=== PATIENT | female | born 1935 | race Caucasian/White ===

== ENCOUNTER 2019-10-01 14:00 | Emergency (ER) | payer MEDICARE, OTHER ==
--- NOTE | 2019-10-01 14:34 | EDM.PDOC ---
ED HPI GENERAL MEDICAL PROBLEM - General Chief Complaint: Genitourinary Problem Stated Complaint: POSSIBLE BLADDER INFECTION Time Seen by Provider: 10/01/19 14:34 Source of Information: Reports: Patient History Limitations: Reports: No Limitations - History of Present Illness INITIAL COMMENTS - FREE TEXT/NARRATIVE: Roughly 1 week of urine discomfort. Has increased intake with minimal improvement if any. States she has had blood in her urine but none visible on sample today. Has been having 2 bowel movements per day but states that are formed as she is taking something for them. Denies fever or chills. Denies change in her chronic pedal edema. Denies shortness of breath or chest discomfort. Denies any other aches or pains of acute nature. Onset Date: 09/25/19 Duration: Day(s):, Constant Location: Reports: Back, Pelvis Quality: Reports: Burning, Dull Severity: Moderate Improves with: Reports: None Worsens with: Reports: None Context: Reports: Activity Associated Symptoms: Reports: No Other Symptoms - Related Data Allergies Allergy/AdvReac Type Severity Reaction Status Date / Time No Known Allergies Allergy Verified 10/01/19 14:26 Home Meds: Home Meds Aspirin [Aspirin EC] 325 mg PO DAILY 10/01/19 [History] Atenolol [Tenormin] 100 mg PO DAILY 10/01/19 [History] Cholecalciferol (Vitamin D3) [Vitamin D3] 1,000 unit PO DAILY 10/01/19 [History] Fluconazole 150 mg PO ONETIME #2 tablet 10/01/19 [Rx] Furosemide 10 mg PO 1200 10/01/19 [History] Furosemide 20 mg PO 0800 10/01/19 [History] Iron Polysaccharide Complex [Poly-Iron] 150 mg PO WITHBREAKFAST 10/01/19 [ History] Lisinopril [Zestril] 40 mg PO DAILY 10/01/19 [History] Nitrofurantoin Macrocrystal [Nitrofurantoin] 100 mg PO BID 6 Days #12 capsule [Rx] Oxybutynin Chloride [Oxybutynin Chloride ER] 15 mg PO DAILY 10/01/19 [History] amLODIPine Besylate [Amlodipine Besylate] 5 mg PO DAILY 10/01/19 [History] glipiZIDE [Glipizide ER] 10 mg PO DAILY 04/19/20 [History] hydrALAZINE [Apresoline] 10 mg PO 1200,1800 10/01/19 [History] hydrALAZINE [Apresoline] 20 mg PO 0800 10/01/19 [History] metFORMIN HCl [Metformin HCl] 1,000 mg PO BID 10/01/19 [History] Past Medical History HEENT History: Reports: Hard of Hearing, Impaired Vision Cardiovascular History: Reports: Heart Failure, Hypertension Respiratory History: Reports: None Gastrointestinal History: Reports: None Genitourinary History: Reports: UTI, Recurrent Musculoskeletal History: Reports: None Neurological History: Reports: None Endocrine/Metabolic History: Reports: Diabetes, Type II, Hypothyroidism Social & Family History - Family History Family Medical History: Noncontributory - Tobacco Use Smoking Status *Q: Never Smoker ED ROS GENERAL - Review of Systems Review Of Systems: Comprehensive ROS is negative, except as noted in HPI. ED EXAM, GENERAL - Physical Exam Exam: See Below General Appearance: Alert, WD/WN, No Apparent Distress Ears: Normal External Exam, Normal Canal Nose: Normal Inspection, Normal Mucosa, No Blood Throat/Mouth: Normal Inspection, Normal Lips, Normal Teeth, Normal Gums, Normal Oropharynx, Normal Voice, No Airway Compromise Head: Atraumatic, Normocephalic Neck: Normal Inspection, Supple, Non-Tender, Full Range of Motion Respiratory/Chest: No Respiratory Distress, Lungs Clear, Normal Breath Sounds, No Accessory Muscle Use, Chest Non-Tender, Decreased Breath Sounds (Basis) Cardiovascular: Normal Peripheral Pulses, Regular Rate, Rhythm, Systolic Murmur (Grade 1/6). No: No Edema GI/Abdominal: Normal Bowel Sounds, Soft, Non-Tender (Female) Exam: Deferred Rectal (Female) Exam: Deferred Back Exam: Normal Inspection, Full Range of Motion, Vertebral Tenderness (Mild tenderness which she attributes has on occasion. No flank pain to percussion.) Extremities: Non-Tender, Pedal Edema (She states this is her normal self with +2 +3 edema bilateral. Skin is warm and dry) Neurological: Alert, Oriented, CN II-XII Intact, Normal Cognition, Normal Gait, Normal Reflexes, No Motor/Sensory Deficits Psychiatric: Normal Affect, Normal Mood Skin Exam: Warm, Dry, Intact, Normal Color, No Rash Course - Orders/Labs/Meds Orders: Active Orders 24 hr Category Date Time Status CULTURE URINE [RM] Stat Lab 10/01/19 14:24 Received Nitrofurantoin [place]/Macrocryst [Macrobid] Med 10/01/19 15:45 Active 200 mg PO BID Medication Orders Nitrofurantoin Macrocrystals (Macrobid) 200 mg PO BID [facility] Labs: Laboratory Tests 10/01/19 10/01/19 10/01/19 Range/Units 14:24 14:43 14:43 WBC 14.09 H (5.00-10.00) 10^3/uL RBC 4.50 (3.80-5.50) 10^6/uL Hgb 12.5 (12.0-16.0) g/dL Hct 37.7 (37.0-47.0) % MCV 83.8 (82.0-92.0) fL MCH 27.8 (27.0-31.0) pg MCHC 33.2 (32.0-36.0) g/dL RDW 14.1 (11.5-14.5) % Plt Count 464 H (150-400) 10^3/uL MPV 9.8 (7.4-10.4) fL Add Manual Diff Yes Neutrophils % (Manual) 82 H (50-70) % Band Neutrophils % 3 L (4-12) % Lymphocytes % (Manual) 9 L (20-40) % Monocytes % (Manual) 5 (2-8) % Eosinophils % (Manual) 1 (1-3) % Absolute Neutrophils 11.55 Band Neutrophils # 0.42 Lymphocytes # (Manual) 1.27 Monocytes # (Manual) 0.70 Eosinophils # (Manual) 0.14 Sodium 140 (136-145) mmol/L Potassium 3.1 L (3.3-5.3) mmol/L Chloride 102 (98-115) mmol/L Carbon Dioxide 23.5 (21.0-32.0) mmol/L Anion Gap 17.6 H (5-15) mmol/L BUN 18 (6-25) mg/dL Creatinine 1.01 (0.51-1.17) mg/dL Est Cr Clr Drug Dosing TNP Estimated GFR (MDRD) 52 mL/min Glucose 372 H (75 - 99) mg/dL Calcium 9.4 (8.7-10.3) mg/dL Total Bilirubin 0.3 (0.2-1.0) mg/dL AST 31 (15-37) U/L ALT 69 (12-78) U/L Alkaline Phosphatase 134 H (46-116) IU/L Total Protein 6.6 (6.4-8.2) g/dL Albumin 2.72 L (3.00-4.80) g/dL Specimen Type . Urine Color Light yellow (YELLOW) Urine Appearance Slightly cloudy H (CLEAR) Urine pH 5.5 (5.0-9.0) Ur Specific [place] 1.010 (1.005-1.030) Urine Protein Negative (NEGATIVE) mg/dL Urine Glucose (UA) 500 H (NEGATIVE) mg/dL Urine Ketones Negative (NEGATIVE) mg/dL Urine Occult Blood Trace-lysed H (NEGATIVE) Urine Nitrite Positive H (NEGATIVE) Urine Bilirubin Negative (NEGATIVE) Urine Urobilinogen 0.2 (0.2-1.0) E.U./dL Ur Leukocyte Esterase Small H (NEGATIVE) Urine RBC 0-5 (0-5) /HPF Urine WBC 50-75 H (0-5) /HPF Ur Epithelial Cells Occasional /LPF Amorphous Sediment Few (0/HPF) /HPF Urine Bacteria Many H (NONE TO FEW) /HPF Meds: Medications Generic Name Dose Route Start Last Admin Trade Name Freq PRN Reason Stop Dose Admin Nitrofurantoin Macrocrystals 200 mg 10/01/19 15:45 Macrobid PO BID MARGE Departure - Departure Time of Disposition: 15:44 Disposition: Home, Self-Care 01 Condition: Good Clinical Impression: UTI, Urinary tract infectious disease, UTI (urinary tract infection), bacterial , Diabetes 1.5, managed as type 2 - Discharge Information *PRESCRIPTION DRUG MONITORING PROGRAM REVIEWED*: Not Applicable *COPY OF PRESCRIPTION DRUG MONITORING REPORT IN PATIENT XOCHILT: Not Applicable Prescriptions: Fluconazole 150 mg PO ONETIME #2 tablet Nitrofurantoin Macrocrystal [Nitrofurantoin] 100 mg PO BID 6 Days #12 capsule Referrals: Maggi Nur PA-C [Primary Care Provider] - Forms: ED Department Discharge Additional Instructions: She will use nitrofurantoin (Macrobid) take one twice a day with increased water. Fluconazole 150 mg, take one at the onset of any yeast symptoms, take the second one 3 days later. You need to increase your water intake. Take all of your other medications as directed. Your blood sugar was elevated today. You need to talk with your provider in 10 days to discuss adjustment of your medication. Your infection in the bladder may be making blood sugar levels worse. Call your clinic for an appointment in 10 days for recheck of your urine and discussion on blood sugar treatments Sepsis Event Note - Focused Exam Date Exam was Performed: 10/01/19 Time Exam was Performed: 16:13 - Problem List & Annotations (1) Abdominal pain SNOMED Code(s): 91976508 Code(s): R10.9 - UNSPECIFIED ABDOMINAL PAIN Status: Acute Current Visit: Yes Qualifiers: Qualified Code(s): R10.84 - Generalized abdominal pain (2) Cystitis SNOMED Code(s): 45950324 Code(s): N30.90 - CYSTITIS, UNSPECIFIED WITHOUT HEMATURIA Status: Acute Current Visit: Yes Annotation/Comment:: Urinary bladder region pressure/ discomfort (3) UTI (urinary tract infection), bacterial SNOMED Code(s): 252509774 Code(s): N39.0 - URINARY TRACT INFECTION, SITE NOT SPECIFIED; A49.9 - BACTERIAL INFECTION, UNSPECIFIED Status: Acute Current Visit: Yes (4) Diabetes 1.5, managed as type 2 SNOMED Code(s): 382848100 Code(s): E13.9 - OTHER SPECIFIED DIABETES MELLITUS WITHOUT COMPLICATIONS Status: Chronic Priority: Medium Current Visit: Yes Annotation/Comment:: Need to discuss this medication regimen with your provider in the next 7-10 days - Problem List Review Problem List Initiated/Reviewed/Updated: Yes - My Orders Last 24 Hours: My Active Orders 10/01/19 14:24 CULTURE URINE [RM] Stat 10/01/19 15:45 Nitrofurantoin [place]/Macrocryst [Macrobid] 200 mg PO BID - Assessment/Plan Last 24 Hours: My Active Orders 10/01/19 14:24 CULTURE URINE [RM] Stat 10/01/19 15:45 Nitrofurantoin [place]/Macrocryst [Macrobid] 200 mg PO BID Plan: She will use nitrofurantoin (Macrobid) take one twice a day with increased water. Fluconazole 150 mg, take one at the onset of any yeast symptoms, take the second one 3 days later. You need to increase your water intake. Take all of your other medications as directed. Your blood sugar was elevated today. You need to talk with your provider in 10 days to discuss adjustment of your medication. Your infection in the bladder may be making blood sugar levels worse. Call your clinic for an appointment in 10 days for recheck of your urine and discussion on blood sugar treatments
[2019-10-01 15:27] LABS: ANION GAP 17.6 mmol/L (5-15); CHLORIDE,CL 102 mmol/L (98-115); SODIUM,NA 140 mmol/L (136-145)
[2019-10-01] MEDS ORDERED: Nitrofurantoin Monohydrate/Macrocrystalline 100 MG Cap PO SCH (15:45)
== END 2019-10-01 16:10 | disposition home or self-care (01) ==
LOC: KA.ED 14:00
DX: N30.90 Cystitis, unspecified without hematuria (principal); E11.9 Type 2 diabetes mellitus without complications; Z79.82 Long term (current) use of aspirin; Z79.899 Other long term (current) drug therapy; Z79.84 Long term (current) use of oral hypoglycemic drugs; E03.9 Hypothyroidism, unspecified
CPT/HCPCS: 80053; 81001; 85025; 87086; 87088; 99283; A9270; 87186; 99284